=== PATIENT | female | born 2005 | race Caucasian/White ===

== ENCOUNTER 2024-05-17 13:30 | Outpatient (CLI) | payer OTHER, SELFPAY ==
--- NOTE | 2024-05-17 | ECG_ITS ---
Test Date: 2024-05-17 13:58:38 Measurements Intervals [place] Rate: 108 P: 51 ND: 144 QRS: 87 QRSD: 109 T: 46 QT: 335 QTc: 450 Interpretive Statements SINUS TACHYCARDIA POSSIBLE LEFT ATRIAL ENLARGEMENT INCOMPLETE RIGHT BUNDLE BRANCH BLOCK BASELINE ARTIFACT- I, II, III, AVR, AVL, AVF, V4-V6 ABNORMAL ECG No previous ECG available for comparison Electronically Signed On 05-17-2024 14:47:18 COMMUNITY PLANNER by Martin Stevenson D.O.
--- OUTSIDE RECORDS SUMMARY | 2024-05-17 13:43 | XMS_ITS | Referral Summary ---
Author Organization [facility] Address [facility] [facility] [place] [address] Care Team Providers Care Executive Assistant To General Counsel Name Role Phone Michael Chavez MD Primary Care Provider Daniel Owen MD Unavailable [phone] Source Comments [facility],non-owned Affiliates and Associated Physician Practices is amultiple site organization consisting of ambulatory clinics and hospital sitesin [place], [place], [place] and [place]. This disclosure is being madepursuant to the Care Everywhere program and may not contain all information available regarding this patient. Last updated 17.[facility] [employer] Allergies No known active allergies Medications * Be aware that medications may not be up to date on this document. Alwaysverify current medications with the patient. Medication Sig Dispensed Refills Start Date End Date Status escitalopram (LEXAPRO) 10 MG tablet Take 1 (one) tablet by mouth once daily 0 01/29/2017 Active busPIRone (BUSPAR) 15 MG tablet Take 1 (one) tablet by mouth 2 times daily 05/13/2021 Active omeprazole (PRILOSEC) 20 MG capsule 03/10/2021 Active lisdexamfetamine (Vyvanse) 70 MG capsule TAKE 1 CAPSULE BY MOUTH ONCE DAILY IN THE MORNING 11/21/2023 Active buPROPion XL 24hr (Wellbutrin-XL) 150 MG tablet TAKE 1 TABLET BY MOUTH EVERY DAY ALONG WITH THE 300MG TABLET 10/17/2023 Active buPROPion XL 24hr (Wellbutrin-XL) 300 MG tablet Take 1 (one) tablet by mouth once daily 10/07/2023 Active desogestrel-ethinyl estradiol (Kariva) 0.15-0.02/0.01 MG (22/08) tablet Take 1 (one) tablet by mouth once daily 84 tablet 4 02/14/2024 Active Immunizations Name Administration Dates Next Due [employer] primary monoval ent 12+ yr 0.3mL Purple cap 08/02/2020 Human Papilloma Virus Nineva lent Vaccine 09/07/2017,04/25/2017,04/23/2016 INFLUENZA VACCINE 01/04/2019, 7,01/05/2016,02/06 INFLUENZA VACCINE, QUADR. (F LUZONE PF QUADRIVALENT; 6-35MO), 0.25 ML (IIV4) 12/17/2015 INFLUENZA VACCINE, QUADR. (F LUZONE; FLULAVAL; FLUARIX; AFLURIA QUADRIVALENT; 6MO+), 0.5 ML (IIV4) 01/14/2021,01/14/2020,01/03/2018,12/16 JIMMIE VACCINE QUAD LAIV4 PF NASAL 03/20/2015 MENINGOCOCCAL CONJUGATE (MCV4P) 05/30/2020,04/23 TDAP (7yrs+) 04/23/2015 Social History Tobacco Use Types Packs/Day Years Used Date Smoking Tobacco: Never Smokeless Tobacco: Never Tobacco Cessation:Counseling Given: Not Answered Alcohol Use Standard Drinks/Week Comments No 0 (1 standard drink = 0.6 oz pur e alcohol) PHQ-2 Answer Date Recorded PHQ2 TOTAL SCORE 0 09/07/2022 Sex and Gender Information Value Date Recorded Sex Assigned at Not on file Gender Identity Female Sexual Orientation Not on file Last Filed Vital Signs Vital Sign Reading Time Taken Comments Blood Pressure 128/88 12/16/2023 1:04 PM CDT Pulse 118 09/20/2016 11:02 PM CDT Temperature 38.5 C (101.3 F) 09/20/2016 11:02 PM CDT Respiratory Rate 19 09/20/2016 11:02 PM CDT Oxygen Saturation 100% 09/20/2016 11:02 PM CDT Inhaled Oxygen Concentration - - Weight 91.6 kg (202 lb) 12/16/2023 1:04 PM CDT Height 162.6 cm (5' 4 ) 12/16/2023 1:04 PM CDT Body Mass Index 34.67 12/16/2023 1:04 PM CDT Plan of Treatment Upcoming Encounters Date Type Department Care Team (Late st Contact Info) Description 12/18/2024 1:00 PM CDT Office Visit [facility] Medical [facility] - PET CARE ATTENDANT [address] [place] [address], [address] [place] [address] Daniel Owen MD [address] [place] [address] [address] [place] [address] Care Teams Executive Assistant To General Counsel Relationship Specialty Start Date End Date Michael Chavez MD [address] [place] [address] PCP - General Pediatrics 11/17/14 Daniel Owen MD [address] [facility] [address] [place] [address] Obstetrics and Gynecology 10/10/18
--- OUTSIDE RECORDS SUMMARY | 2024-05-17 13:43 | XMS_ITS | Clinical Summary ---
Author Organization [facility] Address [address] [place] [phone] Phone Care Team Providers Care Manufacturing Plant Technician Name Role Phone Michael Chavez MD Primary Care Provider [phone] Allergies No known active allergies Medications cetirizine (ZyrTEC) 10 mg tablet Take 10 mg by mouth daily. Active beclomethasone dipropionate (QVAR) 80 mcg/Actuation Aerosol Take 2 Puffs by inhalation daily. Active Active Problems Problem Noted Date Diagnosed Date Anxiety 11/22/2015 Social History Tobacco Use Types Packs/Day Years Used Date Smoking Tobacco: Never Assessed Adolescent Education Answer Date Record ed Getting School Help Needed Not on file 11/06 Comments Unknown Sex and Gender Information Value Date Recorded Sex Assigned at Not on file Legal Sex Female 1:01 PM CDT Gender Identity Not on file Sexual Orientation Not on file Last Filed Vital Signs Vital Sign Reading Time Taken Comments Blood Pressure 124/81 11/22/2015 1:06 PM CDT Pulse - - Temperature 37.2 C (99 F) 11/22/2015 1:06 PM CDT Respiratory Rate 19 11/22/2015 1:06 PM CDT Oxygen Saturation 99% 11/22/2015 1:06 PM CDT Inhaled Oxygen Concentration - - Weight 62.6 kg (138 lb 0.1 oz) 11/22/2015 1:06 P M CDT Height - - Body Mass Index - - Plan of Treatment Health Maintenance Due Date Last Done Comments CHLAMYDIA SCREENING (ANNUAL) 11-24 YEARS 2015 HPV VACCINES (1 - 3-dose series) 2019 DTAP/TDAP/TD VACCINES (1 - Tdap) 2023 HEPATITIS B VACCINES (1 of 3 - 19+ 3-dose series) 2023 INFLUENZA VACCINE (#1) 2023 PNEUMOCOCCAL VACCINE 0-64 YEARS Aged Out No longer eligible based on patient's age to complete this topic Insurance Care Teams Manufacturing Plant Technician Relationship Specialty Start Date End Date Michael Chavez MD PCP - General Pediatrics 11/22/15
--- OUTSIDE RECORDS SUMMARY | 2024-05-17 13:43 | XMS_ITS | Clinical Summary ---
Author Organization [facility] Address [facility] [facility] [place] [address] Care Team Providers Care Instrument Repair Specialist Name Role Phone Michael Chavez MD Primary Care Provider Daniel Owen MD Unavailable Source Comments [facility],non-owned Affiliates and Associated Physician Practices is amultiple site organization consisting of ambulatory clinics and hospital sitesin [place], [place], [place] and [place]. This disclosure is being madepursuant to the Care Everywhere program and may not contain all information available regarding this patient. Last updated 17.[facility] [employer] Allergies No known active allergies Medications * [...] Immunizations Name Administration Dates Next Due Siria [employer] primary monoval ent 12+ yr 0.3mL Purple [...] Description 12/18/2024 1:00 PM CDT Office Visit [facility] - AUTOMOTIVE GLASS TECHNICIAN [address] [place] [address], [address] [place] [address] Daniel Owen MD [address] [place] [address] [address] [place] [address] Health Maintenance Due Date Last Done Comments HIV SCREENING 2019 CHLAMYDIA/GONORRHEA SCREENING 2020 MENINGOCOCCAL (Group B) VACCINE (1 of 2 - Standard) 2020 HEPATITIS C SCREENING 03/26/2022 HEPATITIS B VACCINE (1 of 3 - 19+ 3-dose series) 2023 COVID-19 VACCINE ( season) 2023 02/19/2022, 04/09/2021, 08/14/2020, Additional history exists INFLUENZA VACCINE (#1) 2023 , 01/14/2021, 01/14/2020, Additional history exists DEPRESSION SCREENING 04/04/2024 09/07/2022 DTAP/TDAP/TD VACCINES (2 - Td or Tdap) 04/23/2025 04/23/2015 ZOSTER VACCINE (1 of 2) 2054 HPV VACCINE Completed 09/07/2017, 04/05, 04/23/2016 MENINGOCOCCAL VACCINE Completed 05/30/2020, 016 HIB VACCINE Aged Out No longer eligi ble based on patient's age to complete this topic PNEUMOCOCCAL VACCINE Aged Out No long er eligible based on patient's age to complete this topic Care Teams Instrument Repair Specialist Relationship Specialty Start Date End Date Michael Chavez MD [address] [place] [phone] PCP - General Pediatrics 11/17/14 Daniel Owen MD [address] [facility] [address] [place] [address] Obstetrics and Gynecology 10/10/18
--- OUTSIDE RECORDS SUMMARY | 2024-05-17 13:43 | XMS_ITS | Patient Health Summary ---
Author Organization [facility] Address [address] [facility] [place] [address] Care Team Providers Care Auxiliary Equipment Tender Name Role Phone Michael Chavez MD Primary Care Provider [phone] Daniel Owen MD Unavailable [phone] Note from [facility],non-owned Affiliates and Associated Physician Practices is amultiple site organization consisting of ambulatory clinics and hospital sitesin [place], [place], [place] and [place]. This disclosure is being madepursuant to the Care Everywhere program and may not contain all information available regarding this patient. Last updated 17.[facility] Allergies No known active allergies Medications * Be aware that medications may not be up to date on this document. Alwaysverify current medications with the patient. * escitalopram (LEXAPRO) 10 MG tablet(Started 01/29/2017) Take 1 (one) tablet by mouth once daily * busPIRone (BUSPAR) 15 MG tablet(Started 05/13/2021) Take 1 (one) tablet by mouth 2 times daily * omeprazole (PRILOSEC) 20 MG capsule(Started 03/10/2021) * lisdexamfetamine (Vyvanse) 70 MG capsule(Started 11/21/2023) TAKE 1 CAPSULE BY MOUTH ONCE DAILY IN THE MORNING * buPROPion XL 24hr (Wellbutrin-XL) 150 MG tablet(Started 10/17/2023) TAKE 1 TABLET BY MOUTH EVERY DAY ALONG WITH THE 300MG TABLET * buPROPion XL 24hr (Wellbutrin-XL) 300 MG tablet(Started 10/07/2023) Take 1 (one) tablet by mouth once daily * desogestrel-ethinyl estradiol (Kariva) 0.15-0.02/0.01 MG (22/08) tablet(Started 02/14/2024) Take 1 (one) tablet by mouth once daily 4 refills by 02/13/2025 Immunizations * Covid Pfizer primary monovalent 12+ yr 0.3mL Purple cap(Given 08/02/2020) * Human Papilloma Virus Ninevalent Vaccine(Given 09/07/2017, 04/25/2017, 04/23/2016) * INFLUENZA VACCINE(Given 01/04/2019, 01/10/2017, 01/05/2016, 02/06/2014) * INFLUENZA VACCINE, QUADR. (FLUZONE PF QUADRIVALENT; 6-35MO), 0.25 ML (IIV4) (Given 12/17/2015) * INFLUENZA VACCINE, QUADR. (FLUZONE; FLULAVAL; FLUARIX; AFLURIA QUADRIVALENT; 6MO+), 0.5 ML (IIV4)(Given 01/14/2021, 01/14/2020, 01/03/2018, 12/16/2016) * JIMMIE VACCINE QUAD LAIV4 PF NASAL(Given 03/20/2015) * MENINGOCOCCAL CONJUGATE (MCV4P)(Given 05/30/2020, 04/23/2015) * TDAP (7yrs+)(Given 04/23/2015) Social History Tobacco Use Types Packs/Day Years [...] Mass Index 34.67 12/16/2023 1:04 PM CDT Procedures * US PELVIS LIMITED(Performed 05/26/2017) Performed for Abnormal uterine bleeding * US PELVIS COMPLETE(Performed 03/01/2017) Performed for Abnormal uterine bleeding Results * US PELVIS LIMITED (05/26/2017 3:09 PM ELECTRON TUBE ASSEMBLER) Anatomical Region Laterality Modality Pelvis Ultrasound Narrative 05/26/2017 3:09 PM ELECTRON TUBE ASSEMBLER Daniel Owen MD 05/26/2017 3:[address] [facility] BUY BOAT OPERATOR KELLY CIRCUS TRAIN SUPERVISOR PELVIC ULTRASOUND Pt. Name: Effie Hand : 2005 Exam Date: 05/26/2017 LMP: 5 days ago Referring Physician: Dana Owen Reason for Scan: Follow up to AUB Transabdominal: Yes Transvaginal: No Uterine orientation: Normal Uterine measurements: Length 6.79 cm. Width 5.08 cm. Height 4.05 cm. Volume 73.145 cc Endometrial thickness: 3.94 mm. Left Ovary: Length 0.98 cm. Width 2.47 cm. Height 2.13 cm. Volume 2.70 cc Right Ovary: Length 2.55 cm. Width 2.05 cm. Height 1.07 cm. Volume 2.929 cc Cul de Sac: Negative for free fluid. Physician Interpretation: Normal pelvic US Yarn Examiner: Susanne Reed RDMS, RT(R) Images will be scanned into the record. Interpreting Physician: Dana Owen Daniel Owen MD US ORDERABLES * US PELVIS COMPLETE (03/01/2017 3:46 PM ELECTRON TUBE ASSEMBLER) Anatomical Region Laterality Modality Pelvis Ultrasound Narrative 03/01/2017 3:46 PM ELECTRON TUBE ASSEMBLER Daniel Owen MD 03/01/2017 3:[address] [facility] BUY BOAT OPERATOR KELLY CIRCUS TRAIN SUPERVISOR PELVIC ULTRASOUND Pt. Name: Effie Hand : 2005 Exam Date: 03/01/2017 LMP: No LMP recorded. Referring Physician: Dana Owen Reason for Scan: AUB Transabdominal: Yes Transvaginal: No Uterine orientation: Normal Uterine measurements: Length 7.08 cm. Width 4.52 cm. Height 3.82 cm. Volume 64.008 cc Endometrial thickness: 15.22 mm. Left Ovary: Length 3.01 cm. Width 2.29 cm. Height 1.36 cm. Volume 4.908 cc Right Ovary: Length 2.71 cm. Width 2.45 cm. Height 1.51 cm. Volume 5.24 cc Cul de Sac: Negative for free fluid. Physician Interpretation: Thickened endometrium Yarn Examiner: Susanne Reed RDMS, RT(R) Images will be scanned into the record. Interpreting Physician: Dana Owen Daniel Owen MD ORDERABLES Care Teams Auxiliary Equipment Tender Relationship Specialty Start Date End Date Michael Chavez MD [address] [place] [phone] PCP - General Pediatrics 11/17/14 Daniel Owen MD [address] [facility] [address] [place] [phone] Obstetrics and Gynecology 10/10/18
== END 2024-05-17 13:31 | disposition home or self-care (01) ==
LOC: ANHIMG 13:40 → ANHCARD 13:43
PROVIDERS: PCP Pediatrics; Visit Provider Nurse Practitioner Pediatrics
DX: R94.31 Abnormal electrocardiogram [ECG] [EKG] (principal); R00.0 Tachycardia, unspecified; R00.2 Palpitations
CPT/HCPCS: 93005